=== PATIENT | female | born 1940 | race Caucasian/White ===

== ENCOUNTER 2021-07-29 16:45 | Inpatient (IN) ==
[2021-07-29] MEDS ORDERED: 0.9 % Sodium Chloride 1,000 ML IV ONE (17:04)
[2021-07-29 17:38] LABS: Basophils # 0.1 K/mcL (0.0-0.2); Basophils % 0.3 %; Eosinophils # 0.2 K/mcL (0.0-0.6); Eosinophils % 0.9 %; Hematocrit 37.9 % (35.3-44.9); Hemoglobin 12.5 g/dL (11.5-15.4); Immature Granulocytes % 2.2 % (0-4); Lymphocytes # 1.2 K/mcL (0.6-4.6); Lymphocytes % 6.2 %; Mean Corpuscular Hemoglobin 30.6 pg (28.0-33.3); Mean Corpuscular Volume 92.9 fL (83.0-100.0); Mean Platelet Volume 10.9 fL (9.4-12.4); Monocytes # 1.6 K/mcL (0.0-1.3); Monocytes % 8.1 %; Neutrophils # 15.9 K/mcL (1.6-8.9); Platelet Count 185 K/mcL (140-400); Red Blood Count 4.08 M/mcL (3.82-4.97); Segmented Neutrophils % 82.3 %; White Blood Count 19.3 K/mcL (4.3-11.1)
[2021-07-29 17:42] LABS: Bilirubin,Urine Negative (Negative); Blood,Urine Trace-intact (Negative); Clarity,Urine Clear (Clear); Color,Urine Yellow (Yellow); Glucose,Urine (UA) Normal (Normal); Ketones,Urine Negative (Negative); Leukocyte Esterase,Urine Negative (Negative); Nitrite,Urine Negative (Negative); Protein,Urine 100 mg/dL (Neg-Trace); Specific Gravity,Urine 1.015 (1.010-1.025); Urobilinogen,Urine Normal (Normal)
[2021-07-29 17:46] LABS: INR 1.3; Prothrombin Time 15.3 Seconds (9.4-12.1)
[2021-07-29 17:48] LABS: Activated Partial Thrombo Time 35.2 Seconds (26.0-36.0)
[2021-07-29 17:49] LABS: Bacteria,Urine Moderate per hpf (None-Few); RBC,Urine 0-3 per hpf (0-3)
[2021-07-29 17:54] LABS: Alanine Aminotransferase 7 Units/L (7-52); Albumin 3.8 g/dL (3.5-5.7); Albumin/Globulin Ratio 1.1 (1.1-2.2); Alkaline Phosphatase 59 Units/L (34-104); Aspartate Amino Transferase 13 Units/L (13-39); BUN/Creatinine Ratio 16 (6-26); Bilirubin,Total 0.7 mg/dL (0.3-1.0); Blood Urea Nitrogen 25 mg/dL (8-23); Calcium 9.1 mg/dL (8.6-10.3); Carbon Dioxide 24 mEq/L (23-29); Chloride 95 mEq/L (98-107); Globulin 3.6 g/dL (2.4-3.5); Glucose 125 mg/dL (70-105); Magnesium 1.6 mg/dL (1.6-2.6); Osmolality,Calculated 278 (280-300); Potassium 2.8 mEq/L (3.5-5.1); Sodium 131 mEq/L (136-145); Total Protein 7.4 g/dL (6.4-8.9); eGFR For African Americans 38 (> 60); eGFR For Non-African Americans 31 (> 60)
[2021-07-29 17:57] LABS: Troponin I < 0.03 ng/mL (< 0.04)
[2021-07-29] MEDS ORDERED: cefTRIAXone 1,000 MG in 0.9 % Sodium Chloride Mini Bag 100 ML IVPB ONE (18:38)
[2021-07-29] MEDS ORDERED: Azithromycin 500 MG in 0.9 % Sodium Chloride 250 ML IVPB ONE (19:52)
[2021-07-29] MEDS ORDERED: 0.9 % Sodium Chloride 1,000 ML IVC SCH ×2 (20:00→21:12)
[2021-07-29] MEDS ORDERED: Naloxone 0.4 MG/ML INJ IVP PRN (21:12)
[2021-07-29] MEDS ORDERED: Ergocalciferol (VIT D2) 50,000 UNIT (1.25MG) CAP PO SCH (21:12)
[2021-07-29] MEDS ORDERED: 0.9 % Sodium Chloride 500 ML IVC ONE ×2 (22:05→23:39)
[2021-07-29] MEDS: Benzonatate 100 MG CAPSULE PO SCH (23:27)
[2021-07-29] MEDS: Gabapentin 100 MG CAPSULE PO SCH (23:28)
[2021-07-29] MEDS: QUEtiapine Fumarate 25 MG TABLET PO SCH (23:29)
[2021-07-29] MEDS: rOPINIRole 0.25 MG TABLET PO SCH (23:29)
[2021-07-30] MEDS ORDERED: Albuterol 2.5 MG/3 ML NEBULIZER IH PRN (02:46)
[2021-07-30] MEDS: Acetaminophen 325 MG TABLET PO PRN (02:50)
[2021-07-30 06:22] LABS: Basophils % 0.3 %; Eosinophils % 0.2 %; Hematocrit 32.6 % (35.3-44.9); Hemoglobin 10.7 g/dL (11.5-15.4); Immature Granulocytes % 0.6 % (0-4); Lymphocytes # 1.2 K/mcL (0.6-4.6); Lymphocytes % 8.9 %; Mean Corpuscular HGB Conc 32.8 g/dL (31.6-35.5); Mean Corpuscular Hemoglobin 30.7 pg (28.0-33.3); Mean Corpuscular Volume 93.4 fL (83.0-100.0); Mean Platelet Volume 11.2 fL (9.4-12.4); Monocytes # 1.1 K/mcL (0.0-1.3); Monocytes % 8.5 %; Neutrophils # 10.7 K/mcL (1.6-8.9); Platelet Count 153 K/mcL (140-400); Red Blood Count 3.49 M/mcL (3.82-4.97); Red Cell Distribution Width 14.2 % (11.5-14.5); Segmented Neutrophils % 81.5 %; White Blood Count 13.1 K/mcL (4.3-11.1)
[2021-07-30] MEDS: MethylPREDNISolone 40 MG/ML VIAL IVP SCH ×4 (06:34→23:32)
[2021-07-30 06:49] LABS: Calcium 7.7 mg/dL (8.6-10.3); Potassium 2.9 mEq/L (3.5-5.1)
[2021-07-30] MEDS: Benzonatate 100 MG CAPSULE PO SCH ×3 (07:56→23:32)
[2021-07-30] MEDS: lamoTRIgine 100 MG TABLET PO SCH (07:57)
[2021-07-30] MEDS: Gabapentin 100 MG CAPSULE PO SCH (07:57)
[2021-07-30] MEDS: Cholecalciferol (D-3) 1,000 UNIT (25MCG) TABLET PO SCH (07:57)
[2021-07-30] MEDS: ALPRAZolam 0.5 MG TABLET PO PRN (08:05)
[2021-07-30] MEDS: Ipratropium/Albuterol Neb 3 ML IH SCH ×4 (08:11→19:51)
[2021-07-30] MEDS ORDERED: Naloxone 0.4 MG/ML INJ IVP PRN (10:58)
[2021-07-30 12:59] LABS: Adenovirus Not Detected (Not Detect); Bordetella Pertussis Not Detected (Not Detect); Chlamydophila pneumoniae Not Detected (Not Detect); Coronavirus 229E Not Detected (Not Detect); Coronavirus HKU1 Not Detected (Not Detect); Coronavirus NL63 Not Detected (Not Detect); Coronavirus OC43 Not Detected (Not Detect); Human Metapneumovirus Not Detected (Not Detect); Human Rhinovirus/Enterovirus Not Detected (Not Detect); Influenza A Subtype 2009 H1 Not Detected (Not Detect); Influenza B Not Detected (Not Detect); Mycoplasma pneumoniae Not Detected (Not Detect); Parainfluenza Virus 1 Not Detected (Not Detect); Parainfluenza Virus 2 Not Detected (Not Detect); Parainfluenza Virus 3 Not Detected (Not Detect); Parainfluenza Virus 4 Not Detected (Not Detect); Respiratory Syncytial Virus Not Detected (Not Detect); SARS-CoV-2 Not Detected (Not Detect)
[2021-07-30] MEDS: rOPINIRole 0.25 MG TABLET PO SCH (20:14)
[2021-07-30] MEDS: QUEtiapine Fumarate 25 MG TABLET PO SCH (20:14)
[2021-07-31] MEDS: Ipratropium/Albuterol Neb 3 ML IH SCH ×8 (01:08→23:37)
[2021-07-31] MEDS: MethylPREDNISolone 40 MG/ML VIAL IVP SCH ×4 (05:09→23:45)
[2021-07-31 06:48] LABS: Basophils % 0.1 %; Hemoglobin 10.7 g/dL (11.5-15.4); Lymphocytes # 0.7 K/mcL (0.6-4.6); Lymphocytes % 4.7 %; Mean Corpuscular HGB Conc 32.4 g/dL (31.6-35.5); Mean Corpuscular Hemoglobin 30.7 pg (28.0-33.3); Mean Corpuscular Volume 94.8 fL (83.0-100.0); Mean Platelet Volume 11.5 fL (9.4-12.4); Monocytes # 0.5 K/mcL (0.0-1.3); Monocytes % 3.1 %; Neutrophils # 13.3 K/mcL (1.6-8.9); Platelet Count 181 K/mcL (140-400); Red Blood Count 3.48 M/mcL (3.82-4.97); Red Cell Distribution Width 14.6 % (11.5-14.5); Segmented Neutrophils % 91.1 %; White Blood Count 14.6 K/mcL (4.3-11.1)
[2021-07-31 07:18] LABS: Calcium 8.5 mg/dL (8.6-10.3); Potassium 3.9 mEq/L (3.5-5.1)
[2021-07-31] MEDS: Cholecalciferol (D-3) 1,000 UNIT (25MCG) TABLET PO SCH (09:55)
[2021-07-31] MEDS: Benzonatate 100 MG CAPSULE PO SCH ×3 (09:55→23:44)
[2021-07-31] MEDS: lamoTRIgine 100 MG TABLET PO SCH (09:55)
[2021-07-31] MEDS: ALPRAZolam 0.5 MG TABLET PO PRN ×2 (10:00→21:40)
[2021-07-31] MEDS: Budesonide/Formoterol 160/4.5 1 PUFF INH IH SCH (20:28)
[2021-07-31] MEDS: Acetaminophen 325 MG TABLET PO PRN (21:38)
[2021-07-31] MEDS: rOPINIRole 0.25 MG TABLET PO SCH (21:39)
[2021-07-31] MEDS: QUEtiapine Fumarate 25 MG TABLET PO SCH (21:41)
[2021-08-01] MEDS ORDERED: Azithromycin 500 MG in 0.9 % Sodium Chloride 250 ML IVPB ONE (00:03)
[2021-08-01] MEDS ORDERED: cefTRIAXone 1,000 MG in Water for inj. (sterile) 10 ML IVP ONE (00:03)
[2021-08-01] MEDS: Ipratropium/Albuterol Neb 3 ML IH SCH ×2 (03:29→08:06)
[2021-08-01] MEDS: MethylPREDNISolone 40 MG/ML VIAL IVP SCH (04:46)
[2021-08-01 05:09] LABS: Basophils % 0.1 %; Eosinophils # 0.1 K/mcL (0.0-0.6); Eosinophils % 0.4 %; Hematocrit 37.2 % (35.3-44.9); Hemoglobin 11.7 g/dL (11.5-15.4); Immature Granulocytes % 1.1 % (0-4); Lymphocytes # 0.9 K/mcL (0.6-4.6); Lymphocytes % 4.5 %; Mean Corpuscular HGB Conc 31.5 g/dL (31.6-35.5); Mean Corpuscular Hemoglobin 30.2 pg (28.0-33.3); Mean Corpuscular Volume 96.1 fL (83.0-100.0); Mean Platelet Volume 11.2 fL (9.4-12.4); Monocytes # 0.6 K/mcL (0.0-1.3); Monocytes % 2.9 %; Platelet Count 257 K/mcL (140-400); Red Blood Count 3.87 M/mcL (3.82-4.97); White Blood Count 20.3 K/mcL (4.3-11.1)
[2021-08-01 05:31] LABS: Neutrophils # 18.5 K/mcL (1.6-8.9)
[2021-08-01 05:40] LABS: Potassium 4.3 mEq/L (3.5-5.1)
[2021-08-01] MEDS ORDERED: Ipratropium/Albuterol Neb 3 ML IH PRN (08:11)
[2021-08-01] MEDS: Benzonatate 100 MG CAPSULE PO SCH ×3 (08:24→22:05)
[2021-08-01] MEDS: haloperidoL 5 MG TABLET PO PRN ×3 (08:25→23:30)
[2021-08-01] MEDS: lamoTRIgine 100 MG TABLET PO SCH (08:26)
[2021-08-01] MEDS: Cholecalciferol (D-3) 1,000 UNIT (25MCG) TABLET PO SCH (08:26)
[2021-08-01] MEDS: Budesonide/Formoterol 160/4.5 1 PUFF INH IH SCH ×2 (10:05→23:11)
[2021-08-01] MEDS: QUEtiapine Fumarate 25 MG TABLET PO SCH (22:04)
[2021-08-01] MEDS: Gabapentin 100 MG CAPSULE PO SCH (22:05)
[2021-08-01] MEDS: rOPINIRole 0.25 MG TABLET PO SCH (22:05)
[2021-08-02] MEDS ORDERED: Haloperidol Lactate 5 MG/ML VIAL IVP ONE (03:14)
[2021-08-02 05:48] LABS: Basophils % 0.2 %; Eosinophils % 0.1 %; Hematocrit 28.8 % (35.3-44.9); Hemoglobin 9.2 g/dL (11.5-15.4); Immature Granulocytes % 1.9 % (0-4); Lymphocytes # 1.6 K/mcL (0.6-4.6); Lymphocytes % 13.6 %; Mean Corpuscular HGB Conc 31.9 g/dL (31.6-35.5); Mean Corpuscular Hemoglobin 30.4 pg (28.0-33.3); Mean Platelet Volume 10.5 fL (9.4-12.4); Monocytes # 0.9 K/mcL (0.0-1.3); Monocytes % 7.6 %; Nucleated Red Blood Cells 0.2 /100 WBC (0); Platelet Count 221 K/mcL (140-400); Red Blood Count 3.03 M/mcL (3.82-4.97); Red Cell Distribution Width 15.1 % (11.5-14.5); Segmented Neutrophils % 76.6 %; White Blood Count 11.7 K/mcL (4.3-11.1)
[2021-08-02 06:07] LABS: Calcium 8.9 mg/dL (8.6-10.3); Potassium 3.8 mEq/L (3.5-5.1)
[2021-08-02] MEDS: Budesonide/Formoterol 160/4.5 1 PUFF INH IH SCH ×2 (09:27→21:47)
[2021-08-02] MEDS: cefTRIAXone 1,000 MG in 0.9 % Sodium Chloride Mini Bag 100 ML IVPB SCH (09:50)
[2021-08-02] MEDS: Azithromycin 500 MG in 0.9 % Sodium Chloride 250 ML IVPB SCH (09:52)
[2021-08-02] MEDS: haloperidoL 5 MG TABLET PO PRN (09:54)
[2021-08-02] MEDS: lamoTRIgine 100 MG TABLET PO SCH (09:54)
[2021-08-02] MEDS: Benzonatate 100 MG CAPSULE PO SCH ×2 (09:54→18:13)
[2021-08-02] MEDS: Gabapentin 100 MG CAPSULE PO SCH ×2 (09:54→19:44)
[2021-08-02] MEDS: Cholecalciferol (D-3) 1,000 UNIT (25MCG) TABLET PO SCH (09:54)
[2021-08-02] MEDS: rOPINIRole 0.25 MG TABLET PO SCH (19:42)
[2021-08-02] MEDS: *HR* HYDROcodone/Acet 5/325 mg TABLET PO PRN (19:43)
[2021-08-02] MEDS: QUEtiapine Fumarate 25 MG TABLET PO SCH (19:43)
[2021-08-03] MEDS: Benzonatate 100 MG CAPSULE PO SCH ×4 (06:40→23:30)
[2021-08-03] MEDS: lamoTRIgine 100 MG TABLET PO SCH ×2 (08:49→09:42)
[2021-08-03] MEDS: cefTRIAXone 1,000 MG in 0.9 % Sodium Chloride Mini Bag 100 ML IVPB SCH ×2 (08:49→09:48)
[2021-08-03] MEDS: Gabapentin 100 MG CAPSULE PO SCH (08:49)
[2021-08-03] MEDS: Cholecalciferol (D-3) 1,000 UNIT (25MCG) TABLET PO SCH ×2 (08:50→09:42)
[2021-08-03 09:22] LABS: Basophils # 0.1 K/mcL (0.0-0.2); Basophils % 0.9 %; Eosinophils # 0.1 K/mcL (0.0-0.6); Eosinophils % 1.5 %; Hematocrit 36.4 % (35.3-44.9); Hemoglobin 11.6 g/dL (11.5-15.4); Immature Granulocytes % 3.9 % (0-4); Lymphocytes # 1.6 K/mcL (0.6-4.6); Lymphocytes % 17.5 %; Mean Corpuscular HGB Conc 31.9 g/dL (31.6-35.5); Mean Corpuscular Hemoglobin 30.4 pg (28.0-33.3); Mean Corpuscular Volume 95.5 fL (83.0-100.0); Mean Platelet Volume 11.7 fL (9.4-12.4); Monocytes # 0.7 K/mcL (0.0-1.3); Monocytes % 7.3 %; Neutrophils # 6.1 K/mcL (1.6-8.9); Platelet Count 227 K/mcL (140-400); Red Blood Count 3.81 M/mcL (3.82-4.97); Red Cell Distribution Width 15.5 % (11.5-14.5); Segmented Neutrophils % 68.9 %; White Blood Count 8.9 K/mcL (4.3-11.1)
[2021-08-03 09:39] LABS: Calcium 9.1 mg/dL (8.6-10.3); Potassium 3.9 mEq/L (3.5-5.1)
[2021-08-03] MEDS: haloperidoL 5 MG TABLET PO PRN ×2 (09:42→20:14)
[2021-08-03] MEDS: *HR* HYDROcodone/Acet 5/325 mg TABLET PO PRN (09:43)
[2021-08-03] MEDS: QUEtiapine Fumarate 25 MG TABLET PO SCH ×2 (09:48→20:11)
[2021-08-03] MEDS: Azithromycin 500 MG in 0.9 % Sodium Chloride 250 ML IVPB SCH (10:17)
[2021-08-03] MEDS: Budesonide/Formoterol 160/4.5 1 PUFF INH IH SCH ×2 (10:28→22:19)
[2021-08-03] MEDS: ALPRAZolam 0.5 MG TABLET PO PRN (17:39)
[2021-08-03] MEDS: rOPINIRole 0.25 MG TABLET PO SCH (20:11)
[2021-08-04] MEDS: ALPRAZolam 0.5 MG TABLET PO PRN ×2 (04:54→16:42)
[2021-08-04 07:49] LABS: Basophils # 0.1 K/mcL (0.0-0.2); Basophils % 0.6 %; Eosinophils # 0.3 K/mcL (0.0-0.6); Hematocrit 33.4 % (35.3-44.9); Hemoglobin 10.6 g/dL (11.5-15.4); Lymphocytes # 1.9 K/mcL (0.6-4.6); Lymphocytes % 17.7 %; Mean Corpuscular HGB Conc 31.7 g/dL (31.6-35.5); Mean Corpuscular Hemoglobin 29.9 pg (28.0-33.3); Mean Corpuscular Volume 94.4 fL (83.0-100.0); Monocytes # 0.7 K/mcL (0.0-1.3); Monocytes % 6.7 %; Neutrophils # 7.1 K/mcL (1.6-8.9); Platelet Count 267 K/mcL (140-400); Red Blood Count 3.54 M/mcL (3.82-4.97); Red Cell Distribution Width 15.3 % (11.5-14.5); White Blood Count 10.7 K/mcL (4.3-11.1)
[2021-08-04 08:07] LABS: BUN/Creatinine Ratio 19 (6-26); Blood Urea Nitrogen 20 mg/dL (8-23); Calcium 8.7 mg/dL (8.6-10.3); Carbon Dioxide 21 mEq/L (23-29); Chloride 113 mEq/L (98-107); Glucose 97 mg/dL (70-105); Osmolality,Calculated 297 (280-300); Potassium 3.7 mEq/L (3.5-5.1); Sodium 142 mEq/L (136-145); eGFR For African Americans > 60 (> 60); eGFR For Non-African Americans 50 (> 60)
[2021-08-04] MEDS ORDERED: Azithromycin 500 MG in 0.9 % Sodium Chloride 250 ML IVPB ONE (09:00)
[2021-08-04] MEDS ORDERED: cefTRIAXone 1,000 MG in Water for inj. (sterile) 10 ML IVP ONE (09:00)
[2021-08-04] MEDS: Benzonatate 100 MG CAPSULE PO SCH ×2 (10:03→16:41)
[2021-08-04] MEDS: *HR* HYDROcodone/Acet 5/325 mg TABLET PO PRN (10:03)
[2021-08-04] MEDS: Gabapentin 100 MG CAPSULE PO SCH (10:04)
[2021-08-04] MEDS: Cholecalciferol (D-3) 1,000 UNIT (25MCG) TABLET PO SCH (10:04)
[2021-08-04] MEDS: haloperidoL 5 MG TABLET PO PRN ×2 (10:04→12:44)
[2021-08-04] MEDS: QUEtiapine Fumarate 25 MG TABLET PO SCH ×2 (10:04→19:36)
[2021-08-04] MEDS: lamoTRIgine 100 MG TABLET PO SCH (10:04)
[2021-08-04] MEDS: Budesonide/Formoterol 160/4.5 1 PUFF INH IH SCH ×2 (10:53→22:35)
[2021-08-04] MEDS ORDERED: Haloperidol Lactate 5 MG/ML VIAL IM ONE (12:37)
[2021-08-04] MEDS ORDERED: Amoxicillin/Clavulanate 500 MG TABLET PO SCH (17:00)
[2021-08-04] MEDS: rOPINIRole 0.25 MG TABLET PO SCH (19:37)
[2021-08-05] MEDS: Benzonatate 100 MG CAPSULE PO SCH ×3 (00:10→16:09)
[2021-08-05] MEDS: haloperidoL 5 MG TABLET PO PRN ×2 (01:47→09:54)
[2021-08-05] MEDS: *HR* HYDROcodone/Acet 5/325 mg TABLET PO PRN ×2 (03:15→09:54)
[2021-08-05] MEDS: ALPRAZolam 0.5 MG TABLET PO PRN ×2 (03:55→19:54)
[2021-08-05] MEDS: QUEtiapine Fumarate 25 MG TABLET PO SCH ×2 (09:54→19:53)
[2021-08-05] MEDS: lamoTRIgine 100 MG TABLET PO SCH (09:54)
[2021-08-05] MEDS: Cholecalciferol (D-3) 1,000 UNIT (25MCG) TABLET PO SCH (09:54)
[2021-08-05] MEDS: Gabapentin 100 MG CAPSULE PO SCH (09:55)
[2021-08-05] MEDS: Budesonide/Formoterol 160/4.5 1 PUFF INH IH SCH ×2 (11:01→21:50)
[2021-08-05] MEDS: rOPINIRole 0.25 MG TABLET PO SCH (19:54)
[2021-08-06] MEDS: Benzonatate 100 MG CAPSULE PO SCH ×3 (00:56→15:23)
[2021-08-06] MEDS: lamoTRIgine 100 MG TABLET PO SCH (08:24)
[2021-08-06] MEDS: Cholecalciferol (D-3) 1,000 UNIT (25MCG) TABLET PO SCH (08:24)
[2021-08-06] MEDS: Gabapentin 100 MG CAPSULE PO SCH (08:25)
[2021-08-06] MEDS: QUEtiapine Fumarate 25 MG TABLET PO SCH ×2 (08:25→19:38)
[2021-08-06] MEDS: Budesonide/Formoterol 160/4.5 1 PUFF INH IH SCH (11:35)
[2021-08-06] MEDS: ALPRAZolam 0.5 MG TABLET PO PRN (19:37)
[2021-08-06] MEDS: rOPINIRole 0.25 MG TABLET PO SCH (19:37)
[2021-08-07] MEDS: Budesonide/Formoterol 160/4.5 1 PUFF INH IH SCH ×3 (00:06→22:16)
[2021-08-07] MEDS: Benzonatate 100 MG CAPSULE PO SCH ×3 (01:39→16:30)
[2021-08-07 07:38] LABS: Hematocrit 36.1 % (35.3-44.9); Hemoglobin 11.7 g/dL (11.5-15.4); Mean Corpuscular HGB Conc 32.4 g/dL (31.6-35.5); Mean Corpuscular Hemoglobin 30.3 pg (28.0-33.3); Mean Corpuscular Volume 93.5 fL (83.0-100.0); Mean Platelet Volume 9.8 fL (9.4-12.4); Platelet Count 217 K/mcL (140-400); Red Blood Count 3.86 M/mcL (3.82-4.97); Red Cell Distribution Width 14.7 % (11.5-14.5); White Blood Count 9.4 K/mcL (4.3-11.1)
[2021-08-07 07:59] LABS: BUN/Creatinine Ratio 11 (6-26); Blood Urea Nitrogen 12 mg/dL (8-23); Calcium 8.6 mg/dL (8.6-10.3); Carbon Dioxide 25 mEq/L (23-29); Chloride 105 mEq/L (98-107); Glucose 91 mg/dL (70-105); Osmolality,Calculated 285 (280-300); Potassium 3.4 mEq/L (3.5-5.1); Sodium 138 mEq/L (136-145); eGFR For African Americans > 60 (> 60); eGFR For Non-African Americans 50 (> 60)
[2021-08-07] MEDS: lamoTRIgine 100 MG TABLET PO SCH (09:28)
[2021-08-07] MEDS: QUEtiapine Fumarate 25 MG TABLET PO SCH ×2 (09:28→19:55)
[2021-08-07] MEDS: ALPRAZolam 0.5 MG TABLET PO PRN ×2 (09:28→19:55)
[2021-08-07] MEDS: Cholecalciferol (D-3) 1,000 UNIT (25MCG) TABLET PO SCH (09:29)
[2021-08-07] MEDS: Gabapentin 100 MG CAPSULE PO SCH (09:29)
[2021-08-07 11:08] LABS: Lymphocytes # 0.9 K/mcL (0.6-4.6); Monocytes # 1.3 K/mcL (0.0-1.3); Neutrophils # 6.8 K/mcL (1.6-8.9); Platelet Estimate Normal (Normal)
[2021-08-07] MEDS ORDERED: Potassium Chloride Elixir 20 MEQ/15 ML UDC PO ONE (11:28)
[2021-08-07] MEDS: rOPINIRole 0.25 MG TABLET PO SCH (19:56)
[2021-08-07] MEDS: Acetaminophen 325 MG TABLET PO PRN (20:01)
[2021-08-08] MEDS: Benzonatate 100 MG CAPSULE PO SCH ×3 (01:22→17:00)
[2021-08-08 07:46] LABS: Basophils # 0.1 K/mcL (0.0-0.2); Basophils % 0.5 %; Eosinophils # 0.1 K/mcL (0.0-0.6); Eosinophils % 0.7 %; Hematocrit 38.4 % (35.3-44.9); Hemoglobin 12.2 g/dL (11.5-15.4); Immature Granulocytes % 3.1 % (0-4); Lymphocytes # 1.2 K/mcL (0.6-4.6); Lymphocytes % 12.1 %; Mean Corpuscular HGB Conc 31.8 g/dL (31.6-35.5); Mean Corpuscular Volume 94.6 fL (83.0-100.0); Mean Platelet Volume 10.7 fL (9.4-12.4); Monocytes % 9.5 %; Neutrophils # 7.5 K/mcL (1.6-8.9); Platelet Count 143 K/mcL (140-400); Red Blood Count 4.06 M/mcL (3.82-4.97); Red Cell Distribution Width 15.1 % (11.5-14.5); Segmented Neutrophils % 74.1 %; White Blood Count 10.1 K/mcL (4.3-11.1)
[2021-08-08 07:58] LABS: Calcium 8.6 mg/dL (8.6-10.3); Potassium 3.5 mEq/L (3.5-5.1)
[2021-08-08] MEDS: QUEtiapine Fumarate 25 MG TABLET PO SCH ×2 (09:04→19:39)
[2021-08-08] MEDS: lamoTRIgine 100 MG TABLET PO SCH (09:04)
[2021-08-08] MEDS: Gabapentin 100 MG CAPSULE PO SCH (09:05)
[2021-08-08] MEDS: Cholecalciferol (D-3) 1,000 UNIT (25MCG) TABLET PO SCH (09:05)
[2021-08-08 09:34] LABS: Platelet Clumps Few (Not Present); Platelet Estimate Normal (Normal)
[2021-08-08] MEDS: Budesonide/Formoterol 160/4.5 1 PUFF INH IH SCH ×2 (09:52→21:37)
[2021-08-08] MEDS: rOPINIRole 0.25 MG TABLET PO SCH (19:38)
[2021-08-08] MEDS: Acetaminophen 325 MG TABLET PO PRN (19:40)
[2021-08-08] MEDS: 0.9 % Sodium Chloride 1,000 ML IVC SCH (22:02)
[2021-08-08] MEDS ORDERED: Ondansetron 4 MG/2 ML VIAL IVP PRN (22:41)
[2021-08-09] MEDS ORDERED: 0.9 % Sodium Chloride 500 ML IVC PRN (00:21)
[2021-08-09] MEDS: Benzonatate 100 MG CAPSULE PO SCH ×3 (00:44→18:40)
[2021-08-09 07:04] LABS: Bilirubin,Urine Negative (Negative); Blood,Urine Negative (Negative); Clarity,Urine Clear (Clear); Color,Urine Yellow (Yellow); Glucose,Urine (UA) Normal (Normal); Ketones,Urine Negative (Negative); Leukocyte Esterase,Urine Negative (Negative); Nitrite,Urine Negative (Negative); PH,Urine 6.5 pH Units (5.0-8.0); Protein,Urine Trace mg/dL (Neg-Trace); Specific Gravity,Urine 1.015 (1.010-1.025); Urobilinogen,Urine Normal (Normal)
[2021-08-09 08:11] LABS: Basophils % 0.3 %; Eosinophils % 0.1 %; Hemoglobin 10.5 g/dL (11.5-15.4); Immature Granulocytes % 1.7 % (0-4); Lymphocytes # 0.9 K/mcL (0.6-4.6); Lymphocytes % 12.3 %; Mean Corpuscular HGB Conc 30.9 g/dL (31.6-35.5); Mean Corpuscular Hemoglobin 29.9 pg (28.0-33.3); Mean Corpuscular Volume 96.9 fL (83.0-100.0); Mean Platelet Volume 9.8 fL (9.4-12.4); Monocytes # 0.7 K/mcL (0.0-1.3); Monocytes % 9.7 %; Neutrophils # 5.8 K/mcL (1.6-8.9); Platelet Count 150 K/mcL (140-400); Red Blood Count 3.51 M/mcL (3.82-4.97); Red Cell Distribution Width 15.2 % (11.5-14.5); Segmented Neutrophils % 75.9 %; White Blood Count 7.7 K/mcL (4.3-11.1)
[2021-08-09 08:18] VITALS: BP 115/59; PULSE 80; TEMP 98.2
[2021-08-09 08:54] LABS: Calcium 7.6 mg/dL (8.6-10.3); Potassium 3.5 mEq/L (3.5-5.1)
[2021-08-09] MEDS: Gabapentin 100 MG CAPSULE PO SCH (09:50)
[2021-08-09] MEDS: lamoTRIgine 100 MG TABLET PO SCH (09:50)
[2021-08-09] MEDS: Cholecalciferol (D-3) 1,000 UNIT (25MCG) TABLET PO SCH (09:50)
[2021-08-09] MEDS: QUEtiapine Fumarate 25 MG TABLET PO SCH (09:51)
[2021-08-09] MEDS: 0.9 % Sodium Chloride 1,000 ML IVC SCH (10:30)
[2021-08-09] MEDS: Budesonide/Formoterol 160/4.5 1 PUFF INH IH SCH (10:59)
[2021-08-09 15:07] VITALS: RESP 16; O2SAT 92
== END 2021-08-09 18:44 | disposition other institution (70) | DRG 871 ==
LOC: INPPIK 16:45 → EMEROOPIK 16:45 → INPPIK 20:54
PROVIDERS: ADMIT Internal Medicine; ATTEND Internal Medicine

== ENCOUNTER 2021-08-09 14:08 | Inpatient (IN) ==
[2021-08-09] MEDS ORDERED: *HR* HYDROcodone/Acet 5/325 mg TABLET PO PRN (19:56)
[2021-08-09] MEDS: Ipratropium/Albuterol Neb 3 ML IH PRN (19:57)
[2021-08-09] MEDS ORDERED: Ondansetron 4 MG/2 ML VIAL IVP PRN (20:00)
[2021-08-09] MEDS: QUEtiapine Fumarate 25 MG TABLET PO SCH (21:23)
[2021-08-09] MEDS: rOPINIRole 0.25 MG TABLET PO SCH (21:28)
[2021-08-09] MEDS: Famotidine 20 MG TABLET PO SCH (21:29)
[2021-08-09] MEDS: Cholecalciferol (D-3) 1,000 UNIT (25MCG) TABLET PO SCH (21:39)
[2021-08-10] MEDS: ALPRAZolam 0.5 MG TABLET PO PRN ×2 (01:38→16:19)
[2021-08-10] MEDS: Benzonatate 100 MG CAPSULE PO SCH ×4 (01:39→23:51)
[2021-08-10] MEDS: Famotidine 20 MG TABLET PO SCH ×2 (08:44→20:05)
[2021-08-10] MEDS: Gabapentin 100 MG CAPSULE PO SCH (08:44)
[2021-08-10] MEDS: lamoTRIgine 100 MG TABLET PO SCH (08:44)
[2021-08-10] MEDS: Cholecalciferol (D-3) 1,000 UNIT (25MCG) TABLET PO SCH (08:44)
[2021-08-10] MEDS: QUEtiapine Fumarate 25 MG TABLET PO SCH ×3 (08:44→23:51)
[2021-08-10] MEDS: Ipratropium/Albuterol Neb 3 ML IH PRN ×2 (19:04→22:14)
[2021-08-10] MEDS: rOPINIRole 0.25 MG TABLET PO SCH (20:05)
[2021-08-10] MEDS ORDERED: methylPREDNISolone 125 MG/2 ML VIAL IVP ONE (20:50)
[2021-08-10] MEDS: ALPRAZolam 0.5 MG TABLET PO SCH (21:34)
[2021-08-10] MEDS ORDERED: methylPREDNISolone 125 MG/2 ML VIAL IM ONE (22:15)
[2021-08-11] MEDS ORDERED: Furosemide 40 MG/4 ML VIAL IVP ONE (00:20)
[2021-08-11] MEDS ORDERED: Isovue-370 500 ML BOTTLE IVP ONE (00:21)
[2021-08-11] MEDS ORDERED: Acetaminophen 325 MG TABLET PO PRN (00:56)
[2021-08-11 03:51] LABS: Adenovirus Not Detected (Not Detect); Coronavirus 229E Not Detected (Not Detect); Coronavirus HKU1 Not Detected (Not Detect); Coronavirus NL63 Not Detected (Not Detect); Coronavirus OC43 Not Detected (Not Detect)
[2021-08-11 04:00] LABS: Bordetella Pertussis Not Detected (Not Detect); Chlamydophila pneumoniae Not Detected (Not Detect); Human Metapneumovirus Not Detected (Not Detect); Human Rhinovirus/Enterovirus Not Detected (Not Detect); Influenza A Subtype 2009 H1 Not Detected (Not Detect); Influenza B Not Detected (Not Detect); Mycoplasma pneumoniae Not Detected (Not Detect); Parainfluenza Virus 1 Not Detected (Not Detect); Parainfluenza Virus 2 Not Detected (Not Detect); Parainfluenza Virus 3 Not Detected (Not Detect); Parainfluenza Virus 4 Not Detected (Not Detect); Respiratory Syncytial Virus Not Detected (Not Detect); SARS-CoV-2 DETECTED (Not Detect)
[2021-08-11] MEDS: Benzonatate 100 MG CAPSULE PO SCH ×2 (09:37→16:04)
[2021-08-11] MEDS: QUEtiapine Fumarate 25 MG TABLET PO SCH ×2 (09:38→20:52)
[2021-08-11] MEDS: Gabapentin 100 MG CAPSULE PO SCH (09:38)
[2021-08-11] MEDS: lamoTRIgine 100 MG TABLET PO SCH (09:38)
[2021-08-11] MEDS: Cholecalciferol (D-3) 1,000 UNIT (25MCG) TABLET PO SCH (09:38)
[2021-08-11] MEDS: Famotidine 20 MG TABLET PO SCH ×2 (09:38→20:52)
[2021-08-11] MEDS: ALPRAZolam 0.5 MG TABLET PO SCH ×3 (09:39→20:50)
[2021-08-11] MEDS ORDERED: Ipratropium 1 PUFF INHALER IH PRN (09:42)
[2021-08-11] MEDS ORDERED: levoFLOXacin 500 MG/100 ML 500 MG/100 ML BAG IVPB ONE ×2 (10:00→19:00)
[2021-08-11 10:26] LABS: Basophils % 0.2 %; Hematocrit 32.8 % (35.3-44.9); Hemoglobin 10.4 g/dL (11.5-15.4); Immature Granulocytes % 0.6 % (0-4); Lymphocytes # 0.5 K/mcL (0.6-4.6); Lymphocytes % 9.9 %; Mean Corpuscular HGB Conc 31.7 g/dL (31.6-35.5); Mean Corpuscular Hemoglobin 30.1 pg (28.0-33.3); Mean Corpuscular Volume 94.8 fL (83.0-100.0); Mean Platelet Volume 11.1 fL (9.4-12.4); Monocytes # 0.1 K/mcL (0.0-1.3); Monocytes % 1.6 %; Neutrophils # 4.4 K/mcL (1.6-8.9); Platelet Count 132 K/mcL (140-400); Red Blood Count 3.46 M/mcL (3.82-4.97); Red Cell Distribution Width 15.3 % (11.5-14.5); Segmented Neutrophils % 87.7 %
[2021-08-11 10:39] LABS: Bilirubin,Total 0.3 mg/dL (0.3-1.0); Calcium 8.2 mg/dL (8.6-10.3); Globulin 2.9 g/dL (2.4-3.5); Potassium 4.6 mEq/L (3.5-5.1); Total Protein 5.9 g/dL (6.4-8.9)
[2021-08-11] MEDS: Budesonide/Formoterol 160/4.5 1 PUFF INH IH SCH ×2 (14:00→22:31)
[2021-08-11] MEDS: rOPINIRole 0.25 MG TABLET PO SCH (20:51)
[2021-08-12] MEDS: Benzonatate 100 MG CAPSULE PO SCH ×3 (00:11→14:32)
[2021-08-12] MEDS ORDERED: *HR* Enoxaparin 30 MG/0.3 ML SYRINGE SQ SCH (06:00)
[2021-08-12] MEDS: ALPRAZolam 0.5 MG TABLET PO SCH ×3 (07:26→19:51)
[2021-08-12] MEDS: lamoTRIgine 100 MG TABLET PO SCH (07:26)
[2021-08-12] MEDS: QUEtiapine Fumarate 25 MG TABLET PO SCH ×2 (07:26→19:50)
[2021-08-12] MEDS: Gabapentin 100 MG CAPSULE PO SCH (07:26)
[2021-08-12] MEDS: Cholecalciferol (D-3) 1,000 UNIT (25MCG) TABLET PO SCH (07:26)
[2021-08-12] MEDS: Famotidine 20 MG TABLET PO SCH (07:26)
[2021-08-12] MEDS: Budesonide/Formoterol 160/4.5 1 PUFF INH IH SCH ×2 (08:02→20:22)
[2021-08-12] MEDS ORDERED: Ergocalciferol (VIT D2) 50,000 UNIT (1.25MG) CAP PO SCH (09:00)
[2021-08-12 14:36] LABS: Bilirubin,Urine Negative (Negative); Blood,Urine Negative (Negative); Clarity,Urine Clear (Clear); Color,Urine Yellow (Yellow); Glucose,Urine (UA) Normal (Normal); Ketones,Urine Negative (Negative); Leukocyte Esterase,Urine Negative (Negative); Nitrite,Urine Negative (Negative); PH,Urine 5.5 pH Units (5.0-8.0); Protein,Urine 30 mg/dL (Neg-Trace); Specific Gravity,Urine 1.015 (1.010-1.025); Urobilinogen,Urine Normal (Normal)
[2021-08-12 14:48] LABS: Squamous Epithelial Cell,Urine Few per hpf (None-Few); WBC,Urine 0-3 per hpf (0-3)
[2021-08-12] MEDS: rOPINIRole 0.25 MG TABLET PO SCH (19:50)
[2021-08-12] MEDS ORDERED: Famotidine 20 MG TABLET PO SCH (21:00)
[2021-08-13] MEDS ORDERED: Morphine Sulfate 2 MG/ML SYRINGE IVP ONE (01:13)
[2021-08-13] MEDS: Benzonatate 100 MG CAPSULE PO SCH (02:50)
[2021-08-13 03:12] VITALS: TEMP 98.7
[2021-08-13 03:13] VITALS: BP 128/72; PULSE 91; RESP 39; O2SAT 100
== END 2021-08-13 03:55 | disposition short-term general hospital (02) | DRG 177 ==
LOC: INPPIK 18:45
PROVIDERS: ADMIT Family Medicine; ATTEND Family Medicine